=== PATIENT | female | born 1980 | race Caucasian/White ===

== ENCOUNTER 2016-12-05 01:43 | Inpatient (IN) | payer BC ==
[2016-12-05] MEDS ORDERED: Penicillin G Potassium IV* 5,000,000 UNITS in NS 0.9% 100 ML* 100 ML IVPB ONE (02:13)
[2016-12-05 04:07] LABS: Comments Flag Yes; Hematocrit 41 % (35-47); Hemoglobin 12.8 g/dl (12.0-16.0); Mean Corpuscular HGB Conc 31 g/dl (31-36); Mean Corpuscular Hemoglobin 23 pg (27-31); Mean Corpuscular Volume 74 fL (80-97); Mean Platelet Volume 9 um3 (7.4-10.4); Red Blood Count 5.56 10^6/ul (4.0-5.4); Red Cell Distribution Width 16 % (10.5-15); White Blood Count 22.3 10^3/ul (3.5-10.8)
[2016-12-05 04:33] LABS: Albumin 3.6 g/dL (3.2-5.2); BUN/Creatinine Ratio 14.5 (8-20); Calcium 8.7 mg/dL (8.6-10.3); EGFR African American 122.5 (>60); EGFR Non-African American 95.2 (>60); Globulin 2.8 g/dL (2-4); Potassium 4.2 mmol/L (3.5-5.0); Total Bilirubin 0.6 mg/dL (0.2-1.0); Total Protein 6.4 g/dL (6.4-8.9); Uric Acid 5.2 mg/dL (2.3-6.6)
[2016-12-05] MEDS ORDERED: OBEPIDURAL* 250 ML ONE (04:51)
[2016-12-05] MEDS ORDERED: Sodium Citrate/Citric Acid* 15 ML UDC PO PRN (05:18)
[2016-12-05] MEDS ORDERED: EPHEDrine (Pressors)* 50 MG/ML VIAL IV PUSH PRN (05:18)
[2016-12-05] MEDS ORDERED: Phenylephrine IV* 40 MCG/ML 10 ML SYRINGE IV PUSH PRN (05:18)
[2016-12-05] MEDS ORDERED: Famotidine TAB* 20 MG PO PRN (05:18)
[2016-12-05] MEDS ORDERED: OBEPIDURAL* 250 ML EPIDURAL SCH (06:00)
[2016-12-05] MEDS: Penicillin G Potassium IV* 2,500,000 UNITS in NS 0.9% 100 ML* 100 ML IVPB SCH ×2 (07:13→11:18)
[2016-12-05] MEDS ORDERED: Oxytocin in LR* 20 UNITS/1,000 ML BAG IVPB SCH (09:00)
[2016-12-05] MEDS ORDERED: ceFOXitin 2 GM IVPREMIX* 2 GM/50 ML BAG ONE (12:35)
[2016-12-05] MEDS ORDERED: ceFOXitin 2 GM IVPREMIX* 2 GM/50 ML BAG IVPB ONE (12:49)
[2016-12-05] MEDS ORDERED: fentaNYL* 50 MCG/ML 2 ML VIAL (100 MCG VIAL) ONE (12:53)
[2016-12-05] MEDS ORDERED: Lidocaine 2% EPI 1:200000 MPF* 20 ML VIAL ONE (12:53)
[2016-12-05] MEDS ORDERED: Sodium Bicarbonate 8.4% SYR* 10 ML SYRINGE ONE (12:53)
[2016-12-05] MEDS ORDERED: Ondansetron INJ* 2 MG/ML VIAL IV PRN (13:33)
[2016-12-05] MEDS ORDERED: DiMENhydriNATE IV* 50 MG/ML VIAL IV PUSH PRN (13:33)
[2016-12-05] MEDS ORDERED: Nalbuphine* 20 MG/ML 1 ML VIAL IV PRN (13:33)
[2016-12-05] MEDS ORDERED: Naloxone* 0.4 MG/ML 1 ML VIAL IV PRN (13:33)
[2016-12-05] MEDS ORDERED: Phenylephrine IV* 40 MCG/ML 10 ML SYRINGE ONE (13:43)
[2016-12-05] MEDS ORDERED: OXYTOCIN* 10 UNITS/ML 1 ML VIAL ONE (13:43)
[2016-12-05] MEDS ORDERED: Morphine PF AMP (0.5MG/ML)* 5 MG/10 ML AMP ONE (13:43)
[2016-12-05] MEDS ORDERED: Witch Hazel PAD* JAR TOPICAL PRN (13:55)
[2016-12-05] MEDS ORDERED: Zolpidem TAB* 5 MG PO PRN (13:55)
[2016-12-05] MEDS ORDERED: Acetaminophen TAB* 325 MG PO PRN (13:55)
[2016-12-05] MEDS ORDERED: Glycerin ADULT SUPP PR PRN (13:55)
[2016-12-05] MEDS ORDERED: Dibucaine 1% 28.35 GM TUBE PR PRN (13:55)
[2016-12-05] MEDS: Ibuprofen TAB* 800 MG PO SCH ×2 (16:15→20:39)
[2016-12-05] MEDS: oxyCODONE/Acetamin 5/325 MG* TAB PO PRN (18:54)
[2016-12-05] MEDS: Simethicone TAB* 80 MG TAB.CHEW PO SCH (20:39)
[2016-12-05] MEDS: Docusate CAP* 100 MG PO SCH (20:39)
[2016-12-06] MEDS: oxyCODONE/Acetamin 5/325 MG* TAB PO PRN ×4 (00:11→21:28)
--- NOTE | 2016-12-06 00:29 | OP ---
CC: Itz Whitley MD, [employer] OPERATIVE REPORT: DATE OF OPERATION: 12/05/16 DATE OF : 76 SURGEON: Jesse Mazariegos MD ASSISTANTS: 1. Itz Whitley MD 2. Magaly Powell, home health nurse licensed practical. ANESTHESIA: Epidural. PRE-OP DIAGNOSES: Advanced maternal age, intrauterine at 41 weeks, in labor, arrest of di lation in the first stage of labor, and persistent category II tracing. POST-OP DIAGNOSIS: Advanced maternal age, intrauterine at 41 weeks, in labor, arrest of d ilation in the first stage of labor, and persistent category II tracing. OPERATIVE PROCEDURE: Primary low-transverse section. ESTIMATED BLOOD LOSS: 500 cc. FLUIDS: She received 1 L of IV crystalloid fluid. URINE OUTPUT: Clear. FINDINGS ON DELIVERY: A viable female infant over thick meconium fluid with a nuchal cord x2. She weighs 7 pounds and 11 ounces, Apgars were 8 and 9. The uterus had a posterior subserosal myoma at the mid portion of the posterior aspect of the uterine body, which was about 4 cm in diameter. Silvana l and bladder were within normal limits. There were no complications. DESCRIPTION OF PROCEDURE: The patient was taken to the operating room, where she was identified. S he was placed on the operating table, where an epidural anesthetic was obtained without difficulty. She was then placed in the supine position with a leftward tilt, prepped and draped in the normal s terile fashion. A Pfannenstiel skin incision was made with a knife and carried through to the under lying layer of fascia. The fascia was then nicked in the midline and extended laterally with curved Capone scissors. The fascia was then grasped superiorly and inferiorly with Vasu clamps and dissec davian off sharply from the rectus muscle. The rectus muscle was in the midline bluntly. The peritoneum was identified, grasped with pickups, entered sharply with Metzenbaum scissors, and exte nded superiorly and inferiorly sharply. A bladder blade was inserted into the patient's abdomen and a bladder flap was created using Metzenbaum scissors over which the bladder blade was then reinsert ed. A low transverse uterine incision was made with a knife, extended laterally bluntly. Amniotic sac was ruptured. Meconium fluid was noted. The 's head was then grasped, brought up to the i ncision and a vacuum was attached to the 's head and the head was delivered atraumatically. T he nose and mouth were suctioned. Nuchal cords x2 were reduced. The rest of the infant's body was t hen delivered. The cord was clamped and cut and the infant was handed off to the awaiting pediatric miryam. Cord blood and cord gases were sent. The placenta was removed manually. The uterus was then exteriorized and cleared of all clots using moist laparotomy sponges. The uterine incision was then closed using 0 Polysorb suture in a running locked fashion with a second imbricating layer of 0 Liu ysorb suture. Hemostasis was noted in the uterine incision. At this point, the uterus was returned to the patient's abdomen. The gutters were then cleared of all clot and debris using moist laparot charmaine sponges. The sponges were removed from the patient's abdomen. The peritoneum was identified, cl osed with 3-0 Polysorb suture in a running fashion. The fascia was closed with 0 Polysorb suture in a running fashion and the skin was closed with a 4- 0 Monocryl stitch subcuticularly. The patient tolerated the procedure well. Sponge, lap, and needle counts were correct x2. She was then transfer red to the recovery room area in stable condition. [id number]/[facility] #: [id number]
[2016-12-06] MEDS: Ibuprofen TAB* 800 MG PO SCH (04:31)
[2016-12-06] MEDS ORDERED: oxyCODONE/Acetamin 5/325 MG* TAB PO PRN (05:50)
[2016-12-06 06:57] LABS: Hematocrit 33 % (35-47); Hemoglobin 10.6 g/dl (12.0-16.0); Mean Corpuscular HGB Conc 33 g/dl (31-36); Mean Corpuscular Hemoglobin 23 pg (27-31); Mean Platelet Volume 9 um3 (7.4-10.4); Red Blood Count 4.55 10^6/ul (4.0-5.4); Red Cell Distribution Width 16 % (10.5-15); White Blood Count 18.1 10^3/ul (3.5-10.8)
[2016-12-06 06:58] LABS: Comments Flag Yes; Mean Corpuscular Volume 72 fL (80-97)
[2016-12-06] MEDS: Simethicone TAB* 80 MG TAB.CHEW PO SCH ×4 (08:57→21:28)
[2016-12-06] MEDS: Docusate CAP* 100 MG PO SCH ×3 (08:57→21:28)
[2016-12-06] MEDS ORDERED: Ferrous Gluconate TAB* 324 MG TAB PO SCH (09:00)
[2016-12-06] MEDS: Ibuprofen TAB* 600 MG PO PRN ×2 (10:46→17:26)
[2016-12-07] MEDS: Ibuprofen TAB* 600 MG PO PRN ×4 (01:02→21:34)
[2016-12-07] MEDS: oxyCODONE/Acetamin 5/325 MG* TAB PO PRN ×3 (02:24→21:36)
[2016-12-07] MEDS: Docusate CAP* 100 MG PO SCH ×3 (08:05→21:35)
[2016-12-07] MEDS: Simethicone TAB* 80 MG TAB.CHEW PO SCH ×4 (08:05→21:37)
[2016-12-08] MEDS: Ibuprofen TAB* 600 MG PO PRN ×2 (05:52→13:46)
[2016-12-08 08:33] VITALS: BP 138/88
[2016-12-08] MEDS: oxyCODONE/Acetamin 5/325 MG* TAB PO PRN (10:24)
[2016-12-08] MEDS: Simethicone TAB* 80 MG TAB.CHEW PO SCH ×2 (10:25→13:45)
[2016-12-08] MEDS: Docusate CAP* 100 MG PO SCH ×2 (10:25→13:45)
--- NOTE | 2016-12-08 15:16 | PTEDU ---
Patient Name: JANIS WHITTAKER JANIS WHITTAKER selected video: Never Ever Shake a Baby to view on 12/08/2016 at 3:16:17 PM from [facility] [place] [facility]
== END 2016-12-08 18:21 | disposition home or self-care (01) | DRG 540 ==
LOC: MCHOBOUT 01:43 → MCHOB 02:12
PROVIDERS: ADMIT Midwife; ATTEND Obstetrics & Gynecology
PROC: 10907ZC Drainage of Amniotic Fluid, Therapeutic from Products of Conception, Via Natural or Artificial Opening (ICD-10-PCS; 2016-12-05)
PROC: 10D00Z1 Extraction of Products of Conception, Low, Open Approach (ICD-10-PCS; principal; 2016-12-05 13:01)
DX: O62.0 Primary inadequate contractions (principal); D25.2 Subserosal leiomyoma of uterus; O48.0 Post-term pregnancy; O76 Abnormality in fetal heart rate and rhythm complicating labor and delivery; O99.824 Streptococcus B carrier state complicating childbirth; O77.0 Labor and delivery complicated by meconium in amniotic fluid; O34.13 Maternal care for benign tumor of corpus uteri, third trimester; O09.523 Supervision of elderly multigravida, third trimester; Z3A.41 41 weeks gestation of pregnancy; Z37.0 Single live birth
CPT/HCPCS: 36415; 80053; 81002; 84550; 85025; 85027; 86850; 86900; 86901; 88307; A9270-GY; J0694; J2300; J2540; J2590; J3010

== ENCOUNTER 2018-08-01 06:05 | Inpatient (IN) | payer BC, OTHER ==
[~2018-08-01 06:05] MED LIST: Buffered Lidocaine 0.9% SYRIN* 5 ML/SYR SYRINGE INTRADERM ONE; Famotidine IV* 10 MG/ML 2 ML (20 mg) IV ONE; Sodium Citrate/Citric Acid* 15 ML UDC PO ONE
[2018-08-01] MEDS ORDERED: ceFOXitin 2 GM IVPREMIX* 4 GM/100 ML BAG ONE (06:22)
[2018-08-01] MEDS ORDERED: Morphine PF AMP (0.5MG/ML)* 5 MG/10 ML AMP ONE (07:10)
[2018-08-01] MEDS ORDERED: fentaNYL* 50 MCG/ML 2 ML VIAL (100 MCG VIAL) ONE (07:11)
[2018-08-01] MEDS ORDERED: Bupivacaine-MPF SPINAL* 7.5 MG/ML - 2ML AMP ONE (07:11)
[2018-08-01] MEDS ORDERED: Phenylephrine INJ* 10 MG/ML 1 ML VIAL (10 MG) ONE ×3 (07:17→08:53)
[2018-08-01] MEDS ORDERED: Ondansetron INJ* 2 MG/ML VIAL ONE (07:17)
[2018-08-01] MEDS ORDERED: Lidocaine 2% PF* 10 ML AMP ONE (07:18)
[2018-08-01] MEDS ORDERED: Metoclopramide IV* 5 MG/ML 2 ML VIAL ONE (08:03)
[2018-08-01] MEDS ORDERED: Oxytocin in LR* 20 UNITS/1,000 ML BAG IVPB ONE (08:17)
[2018-08-01] MEDS ORDERED: Acetaminophen TAB* 325 MG PO PRN ×2 (08:37→09:25)
[2018-08-01] MEDS ORDERED: oxyCODONE TAB* 5 MG TAB PO PRN (08:37)
[2018-08-01] MEDS ORDERED: Naloxone* 0.4 MG/ML 1 ML VIAL IV PRN (08:37)
[2018-08-01] MEDS ORDERED: Ondansetron INJ* 2 MG/ML VIAL IV PRN (08:37)
[2018-08-01] MEDS ORDERED: Witch Hazel PAD* JAR TOPICAL PRN (09:25)
[2018-08-01] MEDS ORDERED: Glycerin ADULT SUPP PR PRN (09:25)
[2018-08-01] MEDS ORDERED: Dibucaine 1% 28.35 GM TUBE PR PRN (09:25)
[2018-08-01] MEDS ORDERED: oxyCODONE/Acetamin 5/325 MG* TAB PO PRN (09:25)
[2018-08-01] MEDS: Ketorolac INJ* 30 MG/ML 1 ML VIAL IV PRN ×3 (09:41→22:07)
[2018-08-01] MEDS ORDERED: Oxytocin in LR* 20 UNITS/1,000 ML BAG IVPB SCH (10:00)
[2018-08-01] MEDS: Simethicone TAB* 80 MG TAB.CHEW PO SCH ×3 (12:17→21:12)
[2018-08-01] MEDS: Docusate CAP* 100 MG PO SCH ×2 (12:17→21:11)
[2018-08-01] MEDS: oxyCODONE/Acetamin 5/325 MG* TAB PO PRN ×3 (12:17→22:08)
--- NOTE | 2018-08-01 22:18 | OP ---
DATE OF OPERATION: 08/01/18 - DATE OF : 76 SURGEON: Christine Burgess MD MEDIUM CYCLE SALESPERSON: Dr. Coulter PRE-OP DIAGNOSES: 1. Intrauterine 39 and 1/7th weeks. 2. A2 diabetes mellitus. 3. Advanced maternal age. 4. Desires permanent sterility and repeat section. POST-OP DIAGNOSES: 1. Intrauterine 39 and 1/7th weeks. 2. A2 diabetes mellitus. 3. Advanced maternal age. 4. Desires permanent sterility and repeat section. OPERATIVE PROCEDURE: Repeat low transverse section and bilateral tubal ligation. ESTIMATED BLOOD LOSS: 600 cc. URINE OUTPUT: 350 cc of clear yellow urine. FLUIDS: 1600 cc of crystalloid. FINDINGS: Vertex female infant, 8# 4 oz Apgars 8 at 1 minute and 9 at 5 minutes , cord around feet x1, no meconium. Placenta manually extracted, 3-vessel cord intact. Uterine cavity without evidence of retained placental tissue or membrane. Normal- appearing tubes and ovaries bilaterally. Small subserosal fibroid, posterior uterine fundus approximately 1 cm in size. SPECIMENS: Bilateral fimbria. COMPLICATIONS: None apparent. DISPOSITION: Stable to recovery room. DESCRIPTION OF PROCEDURE: The patient was placed in dorsal lithotomy position. Abdomen was prepped and draped in a sterile standard fashion. Anesthesia was tested to appropriate level. The patient was identified with a universal protocol. Incision was made to prior scar, this was carried down to the fascia. Fascia was scored in the midline and extended laterally and superiorly using curved Capone scissors. Fascia was from the rectus fascia was from the rectus muscle with sharp and blunt dissection superiorly and inferiorly. Peritoneum was entered bluntly. Peritoneal incision was extended bluntly. Urine segment was noted to be free of any adhesions. Uterine incision was tended up with an Allis incision was made with scalpel. This was carried down through the membranes. Amniotomy was created for clear fluid. Uterine incision was extended laterally bluntly. The infant's head was delivered, anterior posterior shoulder delivered. Cord was noted to be wrapped around feet. Cord was milked for 60 seconds, clamped, and then cut and the was handed off to the awaiting to the wire temperer, Dr. Spence. Appropriate cord blood was obtained, placenta was then manually extracted and noted to be 3-vessel cord intact. Uterine cavity was explored, noted to be free of any membranes or placental tissue. Uterus was exteriorized, wrapped with warm moist laparotomy sponge. Incision was reapproximated using 0 Vicryl x2, first layer running locked, second layer running imbricated. At that point , attention was then focused on the tubal ligation, the patient confirmed she wanted permanent sterility. A Milla was placed across the left distal fimbria , free tie 0-Vicryl and then suture ligated using 2-0 Vicryl. The portion of the tube was excised with Metzenbaum scissors. This process was repeated on the right. Uterus was returned intraabdominally. The pedicles were then revisualized. There were some shearing of the pedicle with return of the uterus intraabdominally on the left. This was clamped with Celia and 0-Vicryl and a 2-0 Vicryl were applied for complete hemostasis. Colic gutters were lavaged. Hemostasis was assured in the lower uterine hysterotomy segment site and the pedicles were revisualized for the bilateral tubal ligation and noted to be hemostatic. The peritoneum was then reapproximated using 2-0 Vicryl in a running fashion. Subfascial area was visualized, hemostasis assured and the fascia was reapproximated using 0-Vicryl x2. The subcu was lavaged. Hemostasis was assured at Bovie coagulation and the Camper's fascia was reapproximated using 2-0 Vicryl in an interrupted fashion. The skin was then reapproximated using 4-0 Monocryl in a subcuticular fashion. Mastisol and Steris applied. All sponge, instrument, and blade counts were correct throughout the case. The patient tolerated the procedure well and went to recovery room in stable condition. [id number]/[facility] #: [id number] [facility] MEDICAL CENTERRaffaele
[2018-08-02] MEDS: Ketorolac INJ* 30 MG/ML 1 ML VIAL IV PRN (04:07)
[2018-08-02 06:55] LABS: ABS Basophils 0 10^3/ul (0-0.2); ABS Eosinophils 0.1 10^3/ul (0-0.6); ABS Lymphocytes 1.5 10^3/ul (1.0-4.8); ABS Monocytes 0.8 10^3/ul (0-0.8); ABS Neutrophils 8.6 10^3/ul (1.5-7.7); ABS Nucleated RBC 0 10^3/ul; Eosinophil % 0.6 % (0-6); Hematocrit 31 % (35-47); Hemoglobin 10.5 g/dl (12.0-16.0); Lymphocyte % 13.5 % (25-47); Mean Corpuscular HGB Conc 34 g/dl (31-36); Mean Corpuscular Hemoglobin 25 pg (27-31); Mean Corpuscular Volume 74 fL (80-97); Mean Platelet Volume 7.7 um3 (7.4-10.4); Nucleated Red Blood Cells % 0.1; Platelet Count 97 10^3/ul (150-450); Red Blood Count 4.21 10^6/ul (4.00-5.40); Red Cell Distribution Width 15 % (10.5-15)
[2018-08-02] MEDS ORDERED: Ferrous Gluconate TAB* 324 MG TAB PO SCH (09:00)
[2018-08-02] MEDS ORDERED: Prenatal Vitamin TAB PO SCH (09:00)
[2018-08-02] MEDS: Docusate CAP* 100 MG PO SCH ×3 (09:42→20:22)
[2018-08-02] MEDS: Simethicone TAB* 80 MG TAB.CHEW PO SCH ×4 (09:43→20:22)
[2018-08-02] MEDS: Cholecalciferol TAB* 400 UNIT PO SCH (09:44)
[2018-08-02] MEDS: oxyCODONE/Acetamin 5/325 MG* TAB PO PRN ×2 (11:07→20:23)
[2018-08-02] MEDS: Ibuprofen TAB* 600 MG PO PRN ×2 (11:07→18:46)
[2018-08-03] MEDS: oxyCODONE/Acetamin 5/325 MG* TAB PO PRN ×2 (00:45→15:13)
[2018-08-03] MEDS: Ibuprofen TAB* 600 MG PO PRN ×2 (00:46→12:55)
[2018-08-03] MEDS: Cholecalciferol TAB* 400 UNIT PO SCH (09:07)
[2018-08-03] MEDS: Simethicone TAB* 80 MG TAB.CHEW PO SCH ×2 (09:07→12:55)
[2018-08-03] MEDS: Docusate CAP* 100 MG PO SCH ×2 (09:07→12:55)
[2018-08-03 12:00] VITALS: BP 125/73
== END 2018-08-03 18:03 | disposition home or self-care (01) | DRG 540 ==
LOC: MCHOB 06:05
PROVIDERS: ADMIT Obstetrics & Gynecology; ATTEND Obstetrics & Gynecology
PROC: 0UB70ZZ Excision of Bilateral Fallopian Tubes, Open Approach (ICD-10-PCS; 2018-08-01)
PROC: 10D00Z1 Extraction of Products of Conception, Low, Open Approach (ICD-10-PCS; principal; 2018-08-01 07:45)
DX: O34.211 Maternal care for low transverse scar from previous cesarean delivery (principal); O24.424 Gestational diabetes mellitus in childbirth, insulin controlled; O69.89X0 Labor and delivery complicated by other cord complications, not applicable or unspecified; Z3A.39 39 weeks gestation of pregnancy; Z37.0 Single live birth; Z30.2 Encounter for sterilization
CPT/HCPCS: 36415; 85025; 88302; A9270-GY; J0694; J1885; J2001; J2405; J2765; J3010

== ENCOUNTER 2018-10-19 18:01 | Emergency (ER) | payer BC ==
[2018-10-19 19:31] VITALS: BP 133/87
--- NOTE | 2018-10-19 19:47 | UC ---
Laceration HPI - HPI Summary HPI Summary: WAS TAKING OUT THE TRASH ABOUT 45 MIN [employer] WHEN A PIECE OF GLASS FROM INSIDE THE BAG LACERATED HER LEFT KNEE. TDAP BOOSTED EARLIER THIS YEAR. - History Of Current Complaint Chief Complaint: UCLaceration Stated Complaint: KNEE LACERATION Time Seen by Provider: 10/19/18 19:41 Hx Obtained From: Patient Laceration Location: Knee - LEFT Mechanism Of Injury: Sharp Trauma Onset/Duration: Sudden Onset, Lasting Hours, Still Present Severity: Mild Pain Intensity: 1 Pain Scale Used: 0-10 Numeric Aggravating Factors: Movement - Allergies/Home Medications Allergies/Adverse Reactions: Allergies Allergy/AdvReac Type Severity Reaction Status Date / Time latex Allergy Intermediate Rash Verified 10/19/18 19:25 MRI CONTRAST Allergy Intermediate RASH, PAIN Uncoded 10/19/18 19:25 PMH/Surg Hx/FS Hx/Imm Hx Previously Healthy: Yes - Surgical History Surgical History: Yes Surgery Procedure, Year, and Place: LEFT LABRAL REPAIR, , 2007 - Family History Known Family History: Positive: Non-Contributory - Social History Alcohol Use: Occasionally Alcohol Amount: 3 PER WEEK Substance Use Type: None Smoking Status (MU): Never Smoked Tobacco Have You Smoked in the Last Year: No - Immunization History Most Recent Influenza Vaccination: 07/22/16 Most Recent Tetanus Shot: 09/07/16 Most Recent Pneumonia Vaccination: none Review of Systems All Other Systems Reviewed And Are Negative: Yes Constitutional: Positive: Negative Skin: Positive: Other - LACERATION LEFT KNEE Respiratory: Positive: Negative Cardiovascular: Positive: Negative Gastrointestinal: Positive: Negative Musculoskeletal: Positive: Negative Physical Exam Triage Information Reviewed: Yes Appearance: Well-Appearing, No Pain Distress, Well-Nourished Vital Signs: Initial Vital Signs Temp 98.0 F 10/19/18 19:27 Pulse 80 10/19/18 19:27 Resp 16 10/19/18 19:27 BP 133/87 10/19/18 19:27 Pulse Ox 100 10/19/18 19:27 Vital Signs Reviewed: Yes Eyes: Positive: Conjunctiva Clear ENT: Positive: Hearing grossly normal Neck: Positive: Supple Respiratory: Positive: No respiratory distress, No accessory muscle use Cardiovascular: Positive: Pulses Normal Abdomen Description: Positive: Soft Musculoskeletal: Positive: No Edema Neurological: Positive: Alert Psychological: Positive: Age Appropriate Behavior Skin: Positive: Other - 2.5CM LINEAR LACERATION OVERLYING LEFT KNEE.. Negative : Rashes Laceration Repair - Laceration Repair 1 Description: Linear Laceration Size After Repair: Length (cm) - 2.5CM, Width (mm) - 0MM, Depth (mm) - 3MM Modified For Repair: No Type Injection: Local Anesthesia Used: 1.0% Lido Irrigation With Pressure Irrigation Device: Yes Closure Material: Sutures - 6 SIMPLE INTERRUPTED Closure Method: Single Layer Suture Of: Skin Suture Type: Prolene - 4-0 Laceration Course/Dx - Diagnosis Provider Diagnosis: Laceration of left knee without complication Discharge - Sign-Out/Discharge Documenting (check all that apply): Patient Departure All imaging exams completed and their final reports reviewed: No Studies - Discharge Plan Condition: Stable Disposition: HOME Prescriptions: Cephalexin CAP* [Keflex 500 CAP*] 500 mg PO BID #10 cap Patient Education Materials: Laceration (ED) Referrals: Christine Burgess MD [Primary Care Provider] - If Needed Additional Instructions: KEEP DRESSINGS IN PLACE AND DRY FOR THE FIRST 12-24 HRS. THEN YOU MAY REMOVE THE DRESSING AND GENTLY CLEANSE WITH SOAP AND WATER. PAT DRY AND RE-BANDAGE. APPLY THIN LAYER ANTIBIOTIC OINTMENT UNDER BANDAGE FOR FIRST 3-4 DAYS ONLY. CHANGE BANDAGE DAILY AND NEEDED IF IT BECOMES SOILED OR WET. KEFLEX TWICE DAILY FOR INFECTION PROPHYLAXIS. SEEK FOLLOW-UP IF YOU DEVELOP SPREADING REDNESS OF THE SKIN, PURULENT DRAINAGE, FEVER, INCREASED PAIN OR ANY OTHER CONCERNING SYMPTOMS. RETURN TO HAVE YOUR 6 SUTURES REMOVED IN 10 DAYS - Billing Disposition and Condition Condition: STABLE Disposition: Home
[2018-10-19] MEDS ORDERED: Lidocaine 1%* 5 ML VIAL INJ ONE (19:51)
== END 2018-10-19 21:20 | disposition home or self-care (01) ==
LOC: UCEAST 18:01
DX: S81.012A Laceration without foreign body, left knee, initial encounter (principal); Z91.041 Radiographic dye allergy status; W25.XXXA Contact with sharp glass, initial encounter; Y93.89 Activity, other specified; Y92.009 Unspecified place in unspecified non-institutional (private) residence as the place of occurrence of the external cause
CPT/HCPCS: 12001; 99212; G0463